=== PATIENT | female | born 1935 | race Caucasian/White ===

== ENCOUNTER 2017-12-01 04:23 | Observation (INO) | payer OTHER ==
--- NOTE | 2017-12-01 04:46 | PDOC ---
History of Present Illness - General Chief Complaint: Shortness of Breath Stated Complaint: SHORTNESS OF BREATH Time Seen by Provider: 12/01/17 04:45 - History of Present Illness Initial Comments: 12/01/17 05:03 The patient is an 82 year old female with a history of HTN, HLD, DM and unclear pulmonary and cardiac history who presents for evaluation of SOB. The patient is accompanied by family who assist in providing the history. They report that the patient woke out of sleep earlier this morning with SOB and some associated chest pain which has now resolved. The patient reports continued SOB prompting her presentation to the ED for evaluation. She notes that she does not use O2 at home and otherwise denies fevers, chills, cough, nausea, vomiting, abdominal pain, leg swelling, or changes with urination or bowel movements. Past History - Past Medical History Allergies/Adverse Reactions: Allergies Allergy/AdvReac Type Severity Reaction Status Date / Time No Known Allergies Allergy Verified 12/01/17 13:23 Home Medications: Ambulatory Orders Unobtainable [Unobtainable] 12/01/17 - Suicide/Smoking/Psychosocial Hx Smoking History: Never smoked Have you smoked in the past 12 months: No Information on smoking cessation initiated: No Hx Alcohol Use: No Drug/Substance Use Hx: No Review of Systems - Review of Systems Comments:: 12/01/17 05:05 Constitutional: No fevers, chills, fatigue, malaise HEENT: No Rhinorrhea, nasal congestion, visual changes Cardiovascular: Chest pain. No syncope, palpitations, lightheadedness Respiratory: SOB. No Cough, Hemoptysis, Gastrointestinal: No Abdominal pain, Nausea, Vomiting, Constipation, Diarrhea, Melena Genitourinary: No Dysuria, Frequency, Urgency, Hesitancy, Hematuria, Flank pain Musculoskeletal: No Myalgia, arthralgia Skin: No rashes, itching, bruising, pallor Neurologic: No Headache, Dizziness, Numbness, Weakness, or Tingling Psychiatric: No Hallucinations. No SI or HI *Physical Exam - Vital Signs Last Vital Signs Temp Pulse Resp BP Pulse Ox 98.7 F 86 20 96/57 100 12/01/17 04:44 12/01/17 04:44 12/01/17 04:44 12/01/17 04:44 12/01/17 04:44 - Physical Exam Comments: 12/01/17 05:05 General Appearance: Nourished. No Apparent Distress HEENT: EOMI, OSCAR. No Pharyngeal Erythema, Tonsillar Exudate, Tonsillar Erythema Neck: No Cervical Lymphadenopathy Respiratory/Chest: Lungs Clear, Normal Breath Sounds. No Crackles, Rales, Rhonchi, Wheezing Cardiovascular: Regular Rhythm, Regular Rate. No Murmur, Gallops, Rubs Gastrointestinal/Abdominal: Normal Bowel Sounds, Soft. No Guarding, Rebound, Tenderness Musculoskeletal: No CVA Tenderness Extremity: No lower extremity edema noted on exam. Normal Capillary Refill Integumentary: Normal Color, Dry, Warm Neurologic: Fully Oriented, Alert, Normal Mood/Affect, Normal Response, Heart Score/ECG Review #1 ECG reviewed & interpreted by me at: 05:07 General ECG Interpretation: Sinus Rhythm, Normal Rate, Normal Intervals, No acute ischemic changes Compared to previous ECG there are: Previous ECG unavail ED Treatment Course - LABORATORY CBC & Chemistry Diagram: 12/01/17 05:21 12/01/17 06:30 Medical Decision Making - Medical Decision Making 12/01/17 05:08 The patient is an 82 year old female with a history of HTN, HLD, DM and unclear pulmonary and cardiac history who presents for evaluation of SOB. Differential includes but is not limited to: ACS, CHF, COPD, pneumonia, infectious, metabolic derangement. Given the patient's history and co-morbidities, we will obtain a cbc, cmp, troponin, bnp, ekg, chest plain film to evaluate for possible etiologies including acs. She will likely require a telemetry obs admission for further monitoring. However we will continue to monitor and reassess in the meantime. 12/01/17 06:56 Patient signed out to oncoming team pending lab results and likely tele obs admission. *DC/Admit/Observation/Transfer Diagnosis at time of Disposition: Atypical chest pain - Referrals - Patient Instructions - Post Discharge Activity
[2017-12-01 05:39] LABS: BASO % 1.2 % (0-2.0); EOS % 0.4 % (0-4.5); HEMATOCRIT 31.6 % (32.4-45.2); HEMOGLOBIN 10.7 GM/dL (10.7-15.3); MCH 33.8 pg (25.7-33.7); MCHC 33.9 g/dl (32.0-36.0); MEAN CELL VOLUME 99.6 fl (80-96); MONO % 20.5 % (3.8-10.2); NEUT % 54.9 % (42.8-82.8); PLATELET COUNT 150 K/MM3 (134-434); RBC 3.17 M/mm3 (3.60-5.2); RDW 16.4 % (11.6-15.6); WHITE BLOOD COUNT 5.4 K/mm3 (4.0-10.0)
--- NOTE | 2017-12-01 07:00 | PDOC ---
Attending Attestation - Resident Resident Name: Kenny Naik - ED Attending Attestation I have performed the following: I have examined & evaluated the patient, The case was reviewed & discussed with the resident, I agree w/resident's findings & plan, Exceptions are as noted - HPI HPI: 12/01/17 07:00 short of breath prior to presentation. Now feeling better - Physicial Exam PE: 12/01/17 07:00 Physical Exam General Appearance: Yes: Appropriately Dressed. No: Apparent Distress, Intoxicated HEENT: positive: EOMI, OSCAR, Normal ENT Inspection, Normal Voice, TMs Normal, Pharynx Normal. negative: Pale Conjunctivae, Photophobia, Scleral Icterus (R), Scleral Icterus (L) Neck: positive: Trachea midline, Normal Thyroid, Supple. negative: Tender, Rigid, Carotid bruit, Stridor, Lymphadenopathy (R), Lymphadenopathy (L), Thyromegaly Respiratory/Chest: positive: Lungs Clear, Normal Breath Sounds. negative: Chest Tender, Respiratory Distress, Accessory Muscle Use, Labored Respiration, RES, Crackles, Rales, Rhonchi, Stridor, Wheezing, Dullness Cardiovascular: positive: Regular Rhythm, Regular Rate, S1, S2. negative: Edema , JVD, Murmur, Bradycardia, Tachycardia Vascular Pulses: Dorsalis-Pedis (R): 2+, Doralis-Pedis (L): 2+ Gastrointestinal/Abdominal: positive: Normal Bowel Sounds, Flat, Soft. negative : Tender, Organomegaly, Pulsatile Mass, Increased Bowel Sounds, Decreased BS, Distended, Guarding, Rebound, Hernia, Hepatomegaly, Spleenomegaly Lymphatic: negative: Adenopathy, Tenderness Musculoskeletal: positive: Normal Inspection. negative: CVA Tenderness, Decreased Range of Motion Extremity: positive: Normal Capillary Refill, Normal Inspection, Normal Range of Motion, Pelvis Stable. negative: Tender, Pedal Edema, Swelling, Erythema Integumentary: positive: Normal Color, Dry, Warm. negative: Cyanotic, Erythema , Jaundice, Rash Neurologic: positive: roll over loader II-XII NML intact, Fully Oriented, Alert, Normal Mood/ Affect, Motor Strength 5/5. negative: EOM Palsy, Facial Droop, Sensory Deficit - Medical Decision Making 12/01/17 19:41 Pt admitted to telemetry
--- NOTE | 2017-12-01 07:13 | PDOC ---
*Physical Exam - Vital Signs Last Vital Signs Temp Pulse Resp BP Pulse Ox 98.7 F 86 20 96/57 100 12/01/17 04:44 12/01/17 04:44 12/01/17 04:44 12/01/17 04:44 12/01/17 04:44 - Physical Exam Comments: 12/01/17 07:09 GENERAL: Awake, alert, and fully oriented, in no acute distress HEAD: No signs of trauma, normocephalic, atraumatic EYES: PERRLA, EOMI, sclera anicteric, conjunctiva clear ENT: Hearing grossly normal, nares patent, oropharynx clear without exudates. Moist mucosa NECK: Normal ROM, supple, no lymphadenopathy, JVD, or masses LUNGS: No distress, speaks full sentences, clear to auscultation bilaterally HEART: Regular rate and rhythm, normal S1 and S2, no murmurs, rubs or gallops, peripheral pulses normal and equal bilaterally. EXTREMITIES : Normal inspection, Normal range of motion, no edema. No clubbing or cyanosis. SKIN: Warm, Dry, normal turgor, no rashes or lesions noted Heart Score/ECG Review - History History: Slightly suspicious - Electrocardiogram EKG: Normal - Age Age: >/= 65 - Risk Factors Risk Factors Heart Score: Yes Hx Hypertension, Yes Hx Diabetes, Yes Positive family hx of cardiac disease Based on the list above the patient has:: >/=3 risk factors or Hx atherosclerotic disease - Troponin Troponin: </= normal limit - Score Heart Score - Total: 4 ED Treatment Course - LABORATORY CBC & Chemistry Diagram: 12/01/17 05:21 12/01/17 06:30 - ADDITIONAL ORDERS Additional order review: Laboratory Results 12/01/17 05:21 Sodium Cancelled Potassium Cancelled Chloride Cancelled Carbon Dioxide Cancelled Anion Gap Cancelled BUN Cancelled Creatinine Cancelled Creat Clearance w eGFR Cancelled Random Glucose Cancelled Calcium Cancelled Total Bilirubin Cancelled AST Cancelled ALT Cancelled Alkaline Phosphatase Cancelled Creatine Kinase Cancelled Troponin I Cancelled B-Natriuretic Peptide Cancelled Total Protein Cancelled Albumin Cancelled 12/01/17 05:21 RBC 3.17 L MCV 99.6 H MCHC 33.9 RDW 16.4 H MPV 9.0 Neutrophils % 54.9 Lymphocytes % 23.0 Monocytes % 20.5 H Eosinophils % 0.4 Basophils % 1.2 Medical Decision Making - Medical Decision Making 12/01/17 07:07 82 yo F with h/o HTN, HLD, DM and unclear pulmonary and cardiac history who presents SOB and retrosternal chest pain (now resolved) beginning this AM after waking up from sleep. Denies fevers, chills, cough, nausea, vomiting, abdominal pain, leg swelling, or changes with urination or bowel movements. HDS, and absent physical exam findings. Were considering TX/ACS, CHF, COPD, PNA, metabolic derangement. CBC was unremarkable. CMP pending. Will admit to Tele/ Obs based on unclear cardiac history, elevated heart score~4, and continued symptoms. EKG with NSR and no acute GIRISH, STD . Normal interval duration. ED Course 12/01/17 07:16 CXR: Cardiomegaly with no acute pathology, with no evidence of PNA, CHF, pleural effusions. EKG: NSR with absent, GIRISH, STD, or TWI. Normal interval and axis. 12/01/17 08:55 BNP: 321 Trop: Neg BUN/CR~39/1.4 NS 1 L 12/01/17 08:58 Omar is admitting Medical physician. Attempted to contact 12/01/17 10:[address] Nelson 12/01/17 10:[address] Nelson. Repeat trop pending Admitted to hospitalist service. *DC/Admit/Observation/Transfer Diagnosis at time of Disposition: Atypical chest pain - Referrals Referrals: Can Hernandez MD [Primary Care Provider] - - Patient Instructions - Post Discharge Activity
[2017-12-01 07:25] LABS: ALBUMIN 3.2 g/dl (3.4-5.0); ANION GAP 13 (8-16); BILIRUBIN,TOTAL 0.6 mg/dL (0.2-1.0); BLOOD UREA NITROGEN 39 mg/dL (7-18); CALCIUM 8.6 mg/dL (8.5-10.1); CHLORIDE 99 mmol/L (98-107); CO2 29 mmol/L (21-32); CREATININE 1.4 mg/dL (0.55-1.02); GLUCOSE,RANDOM 190 mg/dL (74-106); POTASSIUM 3.4 mmol/L (3.5-5.1); SGOT/AST 17 U/L (15-37); SGPT/ALT 14 U/L (12-78); SODIUM 141 mmol/L (136-145); TOT PROT 7.4 g/dl (6.4-8.2)
[2017-12-01 07:28] LABS: ALK PHOS 46 U/L (45-117); N-TERMINAL BNP 321.97 pg/ml (5-450)
[2017-12-01] MEDS ORDERED: SODIUM CHLORIDE 1,000 ML IV STA (08:56)
--- NOTE | 2017-12-01 12:08 | HP ---
CHIEF COMPLAINT: SOB and Chest pain PCP: Dr. Nelson HISTORY OF PRESENT ILLNESS: 82 y/o F w/PMH of HTN, HLD, DM, and "lung and heart problems" presents with SOB that occurred at night last night. SOB was at rest and not worsened with walking and associated with mid sternal chest pain with no radiation. Pt's CP resolved soon after but SOB persisted. She states she was in her usual state of health yesterday and had this SOB all of a sudden. She states she has a chronic cough for which she uses an inhaler to relieve the cough but denies having asthma and was unsure about COPD (pt has no smoking hx). She denies sick contacts, recent travel, abd pain, fever, chills, change in urine or bowel movements, blood in urine or stool, phlegm with cough, swelling in legs, pain in calfs. Currently pt is asymptomatic and feels back at baseline and no longer has SOB or chest pain. ER course was notable for: (1) NS (2) (3) Recent Travel: denies PAST MEDICAL HISTORY: HTN, HLD, DM, "lung and heart problems" (pt does not know exactly what). PAST SURGICAL HISTORY: denies any surgeries in the past Social History: Smoking: never Alcohol: never Drugs: never Family History: n-c Allergies No Known Allergies Allergy (Verified 12/01/17 05:01) HOME MEDICATIONS: Home Medications Medication Instructions Recorded Unobtainable [Unobtainable] 12/01/17 REVIEW OF SYSTEMS CONSTITUTIONAL: Absent: fever, chills CARDIOVASCULAR: +chest pain Absent: peripheral edema RESPIRATORY: +sob Absent: cough, dyspnea with exertion GASTROINTESTINAL: Absent: abdominal pain, nausea, vomiting, diarrhea GENITOURINARY: Absent: dysuria, hematuria NEUROLOGIC: Absent: headache PHYSICAL EXAMINATION Vital Signs - 24 hr 12/01/17 12/01/17 04:44 08:15 Temperature 98.7 F 98.5 F Pulse Rate 86 70 Pulse Rate [ 70 Apical] Respiratory 20 20 Rate Blood Pressure 96/57 Blood Pressure 100/54 [Left Arm] O2 Sat by Pulse 100 98 Oximetry (%) GENERAL: Awake, alert, and fully oriented, in no acute distress. EYES: sclera anicteric, conjunctiva clear. EARS, NOSE, THROAT: Ears normal, nares patent NECK: Normal range of motion, supple LUNGS: Breath sounds equal, clear to auscultation bilaterally. No wheezes, and no crackles. No accessory muscle use. HEART: Distant heart sounds. Regular rate and rhythm, normal S1 and S2. Difficult to assess for murmurs due to distant heart sounds. ABDOMEN: Soft, obese, nontender, not distended, normoactive bowel sounds LOWER EXTREMITIES: 2+ pulses, warm, well-perfused. No calf tenderness. No peripheral edema. NEUROLOGICAL: Normal speech. Gait not observed. PSYCHIATRIC: Cooperative. Good eye contact. Appropriate mood and affect. SKIN: Warm, dry Laboratory Results - last 24 hr 12/01/17 12/01/17 12/01/17 05:21 05:21 06:30 WBC 5.4 RBC 3.17 L Hgb 10.7 Hct 31.6 L MCV 99.6 H MCH 33.8 H MCHC 33.9 RDW 16.4 H Plt Count 150 MPV 9.0 Neutrophils % 54.9 Lymphocytes % 23.0 Monocytes % 20.5 H Eosinophils % 0.4 Basophils % 1.2 Sodium Cancelled 141 Potassium Cancelled 3.4 L Chloride Cancelled 99 Carbon Dioxide Cancelled 29 Anion Gap Cancelled 13 BUN Cancelled 39 H Creatinine Cancelled 1.4 H Creat Clearance w eGFR Cancelled 36.18 Random Glucose Cancelled 190 H Calcium Cancelled 8.6 Total Bilirubin Cancelled 0.6 AST Cancelled 17 ALT Cancelled 14 Alkaline Phosphatase Cancelled 46 Creatine Kinase Cancelled 90 Troponin I Cancelled < 0.02 B-Natriuretic Peptide Cancelled 321.97 Total Protein Cancelled 7.4 Albumin Cancelled 3.2 L Imaging: CXR: No acute pathology R shoulder XR: no acute pathology EKG: NSR, no acute ischemic changes ASSESSMENT/PLAN: 82 y/o F w/PMH of HTN, HLD, DM, and "lung and heart problems" presents with SOB and chest pain that occurred at night last night. Pt being observed for chest pain. -SOB likely secondary to asthma (undiagnosed but on inhaler) exacerbation vs cardiac etiology -Pt with no SOB now -will give duonebs PRN for sob -pt with no chest pain now -will continue to trend trops, first trop negative so far -HTN -currently normotensive. Pt does not remember her home meds. -continue to monitor -DM -ISS, BGMs ACHS -DVT ppx -Heparin 5000 units sq TID -FEN -No fluids -hypokalemia, will replete with 40 meq K PO -Diabetic diet -Dispo: tele/obs Visit type - Emergency Visit Emergency Visit: Yes ED Registration Date: 12/01/17 Care time: The patient presented to the Emergency Department on the above date and was hospitalized for further evaluation of their emergent condition. - New Patient This patient is new to me today: Yes Date on this admission: 12/01/17 - Critical Care Critical Care patient: No Hospitalist Screening - Colonoscopy Questionnaire Colonoscopy Questionnaire: Colonoscopy Questionnaire - Patient: 50 - 75 years old and never had a screening colonoscopy: Unknown History of colon or rectal polyps, or CA: Unknown History of IBD, Crohn's disease or UC: Unknown History of abdominal radiation therapy as a child: Unknown - Relative: 1 with colon or rectal CA, or polyps at age 60 or younger: Unknown Colon or rectal CA diagnosed at age 45 or younger: Unknown Multiple relatives with colon or rectal CA: Unknown - Outcome: Screening Result: Negative Screen
[2017-12-01] MEDS ORDERED: ALBUTEROL SO4 2.5/IPRATROPIUM 0.5 INH SOL 3 ML VIAL.NEB. NEB PRN (12:30)
[2017-12-01] MEDS ORDERED: POTASSIUM CHLORIDE TABS 20 MEQ TABLET.ER (FP) PO ONE ×2 (12:45→13:05)
[2017-12-01] MEDS ORDERED: HEPARIN NA (PORCINE) 5,000 UNITS/ML 1ML VIAL ONE (13:05)
[2017-12-01] MEDS: HEPARIN NA (PORCINE) 5,000 UNITS/ML 1ML VIAL SQ SCH ×2 (13:57→21:40)
--- NOTE | 2017-12-01 16:35 | EKG ---
Test Reason : Blood Pressure : / mmHG Vent. Rate : 068 BPM Atrial Rate : 068 BPM P-R Int : 140 ms QRS Dur : 090 ms QT Int : 444 ms P-R-T Axes : 003 -11 096 degrees QTc Int : 472 ms POOR DATA QUALITY, INTERPRETATION MAY BE ADVERSELY AFFECTED NORMAL SINUS RHYTHM NONSPECIFIC ST AND T WAVE ABNORMALITY ABNORMAL ECG NO PREVIOUS ECGS AVAILABLE Confirmed by DORIAN YOUSSEF, MARY ([id number]) on 12/01/2017 4:34:36 PM Referred By: Confirmed By:MARY ALARCON MD
[2017-12-01 18:16] VITALS: BMI 29.9
[2017-12-01] MEDS ORDERED: PNEUMOC 13-VAL CONJ-DIP CRM/PF 0.5 ML DISP.SYRIN IM ONE (19:15)
--- NOTE | 2017-12-01 19:35 | PN ---
Teaching Attending Note Name of Resident: Kristian Shelton ATTENDING PHYSICIAN STATEMENT I saw and evaluated the patient. I reviewed the resident's note and discussed the case with the resident. I agree with the resident's findings and plan as documented. SUBJECTIVE: This is an 82 year old woman with a history of HTN, hyperlipidemia, type 2 DM who comes to the ED complaining of mid sternal chest pain and SOB that awoke her from sleep early this morning. Symptoms did not worsen with exertion. She denies palpitations, dizziness, diaphoresis. She has not had recent CP/SOB with exertion. Symptoms resolved prior to her arrival in the ED. OBJECTIVE: Vital Signs Period Temp Pulse Resp BP Sys/Hardin Pulse Ox Last 24 Hr 98 F-98.7 F 66-86 18-20 96-155/54-82 98-100 HEART: S1S2, RRR LUNGS: Clear ABDOMEN: Soft, non-tender, non-distended, normal BS EXTREMITIES: No edema Home Medications Medication Instructions Recorded Unobtainable [Unobtainable] 12/01/17 ASSESSMENT AND PLAN: This is an 82 year old woman with a history of HTN, hyperlipidemia, type 2 DM who presented to the ED with an episode of CP and SOB that awoke her from sleep. 1. Atypical CP with SOB - Resolved without intervention - Observe on telemetry - Serial troponins - Outpatient stress test if enzymes negative 2. Hypokalemia - Replete potassium 3. HTN 4. Hyperlipidemia 5. Type 2 DM - Fingersticks with Novolog sliding scale 6. 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
[2017-12-02] MEDS: HEPARIN NA (PORCINE) 5,000 UNITS/ML 1ML VIAL SQ SCH ×2 (06:32→14:07)
--- NOTE | 2017-12-02 07:15 | PN ---
Physical Exam: SUBJECTIVE: Patient seen and examined OBJECTIVE: Vital Signs Intake & Output 11/29/17 11/30/17 12/01/17 12/02/17 23:59 23:59 23:59 23:59 Intake Total 360 Balance 360 Weight 69.4 kg Period Temp Pulse Resp BP Sys/Hardin Pulse Ox Last 24 Hr 97.8 F-99.1 F 60-80 18-20 100-175/54-82 98-98 GENERAL: The patient is awake, alert, and fully oriented, in no acute distress. HEAD: Normal with no signs of trauma. EYES: PERRL, extraocular movements intact, sclera anicteric, conjunctiva clear. No ptosis. ENT: Ears normal, nares patent, oropharynx clear without exudates, moist mucous membranes. NECK: Trachea midline, full range of motion, supple. LUNGS: Breath sounds equal, clear to auscultation bilaterally, no wheezes, no crackles, no accessory muscle use. HEART: Regular rate and rhythm, S1, S2 without murmur, rub or gallop. ABDOMEN: Soft, nontender, nondistended, normoactive bowel sounds, no guarding, no rebound, no hepatosplenomegaly, no masses. EXTREMITIES: 2+ pulses, warm, well-perfused, no edema. NEUROLOGICAL: Cranial nerves II through XII grossly intact. Normal speech, gait not observed. PSYCH: Normal mood, normal affect. SKIN: Warm, dry, normal turgor, no rashes or lesions noted Laboratory Results - last 24 hr CBC, BMP CBC, BMP 12/02/17 07:05 12/02/17 07:05 12/01/17 05:21 12/01/17 06:30 12/01/17 12/01/17 12/01/17 06:30 13:19 14:24 Sodium 141 Potassium 3.4 L Chloride 99 Carbon Dioxide 29 Anion Gap 13 BUN 39 H Creatinine 1.4 H Creat Clearance w eGFR 36.18 Random Glucose 190 H Calcium 8.6 Total Bilirubin 0.6 AST 17 ALT 14 Alkaline Phosphatase 46 Creatine Kinase 90 107 Troponin I < 0.02 0.02 0.02 B-Natriuretic Peptide 321.97 Total Protein 7.4 Albumin 3.2 L Active Medications Generic Name Dose Route Start Last Admin Trade Name Freq PRN Reason Stop Dose Admin Albuterol/Ipratropium 1 amp 12/01/17 12:30 Duoneb - NEB Q6H PRN SHORTNESS OF BREATH Heparin Sodium (Porcine) 5,000 unit 12/01/17 14:00 12/02/17 06:32 Heparin - SQ Not Given TID [facility] ASSESSMENT/PLAN:
[2017-12-02 07:31] LABS: HEMATOCRIT 30.4 % (32.4-45.2); HEMOGLOBIN 10.1 GM/dL (10.7-15.3); MCH 33.5 pg (25.7-33.7); MCHC 33.2 g/dl (32.0-36.0); MEAN PLT VOLUME 8.9 fl (7.5-11.1); PLATELET COUNT 144 K/MM3 (134-434); RBC 3.02 M/mm3 (3.60-5.2); RDW 16.7 % (11.6-15.6); WHITE BLOOD COUNT 4.3 K/mm3 (4.0-10.0)
[2017-12-02 08:21] LABS: ALBUMIN 3.3 g/dl (3.4-5.0); ANION GAP 6 (8-16); BLOOD UREA NITROGEN 30 mg/dL (7-18); CALCIUM 8.1 mg/dL (8.5-10.1); CHLORIDE 106 mmol/L (98-107); CO2 32 mmol/L (21-32); CREATININE 1.3 mg/dL (0.55-1.02); GLUCOSE,RANDOM 178 mg/dL (74-106); MAGNESIUM 2.1 mg/dL (1.8-2.4); PHOSPHOROUS 2.8 mg/dL (2.5-4.9); POTASSIUM 4.1 mmol/L (3.5-5.1); SODIUM 144 mmol/L (136-145)
[2017-12-02] MEDS ORDERED: ACETAMINOPHEN 325 MG TABLET (FP) PO PRN (11:19)
[2017-12-02 12:11] LABS: ANISOCYTOSIS 1+; MACROCYTOSIS 1+
[2017-12-02 12:12] LABS: PLATELET ESTIMATE SLT DECREASE
[2017-12-02] MEDS ORDERED: INSULIN (NOVOLOG) ASPART 100 UNITS/ML 10ML VIAL ONE (12:18)
[2017-12-02] MEDS: INSULIN SLIDING SCALE (NOVOLOG) 1 VIAL SQ SCH ×2 (12:18→17:19)
[2017-12-02 14:53] VITALS: BP 123/58; PULSE 58; TEMP 98.2
--- NOTE | 2017-12-02 15:58 | PN ---
Teaching Attending Note Name of Resident: Joao Rosas ATTENDING PHYSICIAN STATEMENT I saw and evaluated the patient. I reviewed the resident's note and discussed the case with the resident. I agree with the resident's findings and plan as documented with exceptions mentioned below. SUBJECTIVE: Patient seen and examined, breathing better, no complaints, denies any chest pain. OBJECTIVE: Vital Signs Period Temp Pulse Resp BP Sys/Hardin Pulse Ox Last 24 Hr 97.8 F-99.8 F 58-75 18-20 105-175/58-82 98-98 Intake & Output 11/29/17 11/30/17 12/01/17 12/02/17 23:59 23:59 23:59 23:59 Intake Total 360 Balance 360 Weight 153 lb General: sitting in bed in no acute distress CVS:S1S2 regular Chest: CTAB, no rales or wheezing abdomen: soft, NT extremities: no edema Home Medication List Medication Instructions Recorded Confirmed Type Albuterol Sulfate Inhaler - 2 puff .ROUTE Q4H PRN 12/02/17 12/02/17 History [Ventolin HFA Inhaler -] Chlorthalidone 25 mg PO DAILY 12/02/17 12/02/17 History Ergocalciferol (Vitamin D2) 50,000 cap PO WEEKLY 12/02/17 12/02/17 History [Vitamin D2] Insulin Glargine,Hum.rec.anlog 80 unit SQ DAILY 12/02/17 12/02/17 History [Lantus] Nebivolol HCl [Bystolic] 10 mg PO DAILY 12/02/17 12/02/17 History Omeprazole 40 mg PO DAILY 12/02/17 12/02/17 History Primidone 50 mg PO BID 12/02/17 12/02/17 History Active Medications Generic Name Dose Route Start Last Admin Trade Name Freq PRN Reason Stop Dose Admin Acetaminophen 325 mg 12/02/17 11:19 12/02/17 12:21 Tylenol - PO 325 mg Q6H PRN Administration PAIN LEVEL 1 - 3 Albuterol/Ipratropium 1 amp 12/01/17 12:30 Duoneb - NEB Q6H PRN SHORTNESS OF BREATH Heparin Sodium (Porcine) 5,000 unit 12/01/17 14:00 12/02/17 14:07 Heparin - SQ 5,000 unit TID JALEN Administration Insulin Aspart 1 vial 12/02/17 11:00 12/02/17 12:18 Novolog Vial Sliding Scale - SQ 6 units [facility] Administration Protocol Home Medication List Medication Instructions Recorded Confirmed Type Albuterol Sulfate Inhaler - 2 puff .ROUTE Q4H PRN 12/02/17 12/02/17 History [Ventolin HFA Inhaler -] Chlorthalidone 25 mg PO DAILY 12/02/17 12/02/17 History Ergocalciferol (Vitamin D2) 50,000 cap PO WEEKLY 12/02/17 12/02/17 History [Vitamin D2] Insulin Glargine,Hum.rec.anlog 80 unit SQ DAILY 12/02/17 12/02/17 History [Lantus] Nebivolol HCl [Bystolic] 10 mg PO DAILY 12/02/17 12/02/17 History Omeprazole 40 mg PO DAILY 12/02/17 12/02/17 History Primidone 50 mg PO BID 12/02/17 12/02/17 History Active Medications Generic Name Dose Route Start Last Admin Trade Name Roccoq PRN Reason Stop Dose Admin Acetaminophen 325 mg 12/02/17 11:19 12/02/17 12:21 Tylenol - PO 325 mg Q6H PRN Administration PAIN LEVEL 1 - 3 Albuterol/Ipratropium 1 amp 12/01/17 12:30 Duoneb - NEB Q6H PRN SHORTNESS OF BREATH Heparin Sodium (Porcine) 5,000 unit 12/01/17 14:00 12/02/17 14:07 Heparin - SQ 5,000 unit TID JALEN Administration Insulin Aspart 1 vial 12/02/17 11:00 12/02/17 12:18 Novolog Vial Sliding Scale - SQ 6 units [facility] Administration Protocol Laboratory Results - last 24 hr 12/02/17 12/02/17 12/02/17 06:43 07:05 07:05 WBC 4.3 RBC 3.02 L Hgb 10.1 L Hct 30.4 L MCV 101.0 H MCH 33.5 MCHC 33.2 RDW 16.7 H Plt Count 144 MPV 8.9 Neutrophils % No Result Required. Neutrophils % (Manual) 54.0 Lymphocytes % No Result Required. Lymphocytes % (Manual) 25.0 Monocytes % (Manual) 20 H* Basophils % (Manual) 1.0 Differential Comment Man diff performed Platelet Estimate Slt decrease Anisocytosis 1+ Macrocytosis 1+ Sodium 144 Potassium 4.1 Chloride 106 Carbon Dioxide 32 Anion Gap 6 L BUN 30 H Creatinine 1.3 H POC Glucometer 191 Random Glucose 178 H Calcium 8.1 L Phosphorus 2.8 Magnesium 2.1 Albumin 3.3 L 12/02/17 12:11 WBC RBC Hgb Hct MCV MCH MCHC RDW Plt Count MPV Neutrophils % Neutrophils % (Manual) Lymphocytes % Lymphocytes % (Manual) Monocytes % (Manual) Basophils % (Manual) Differential Comment Platelet Estimate Anisocytosis Macrocytosis Sodium Potassium Chloride Carbon Dioxide Anion Gap BUN Creatinine POC Glucometer 258 Random Glucose Calcium Phosphorus Magnesium Albumin ASSESSMENT AND PLAN: 82 yof with atypical chest pain -Atypical chest pain, resolved -HTN -HLD -IDDM PLan: Telemetry uneventful, ACS ruled out. patient asymptomatic. outpatient stress test. Resume home meds dc home with services today with outpatient follow up.
--- NOTE | 2017-12-02 18:53 | DS ---
Physical Exam: SUBJECTIVE: Patient seen and examined by me this AM - No major overnight events. States breathing is much improved, no chest pain/ tightness. Denies [place], f/c/n/v/d, cough, ab pain, back pain, dizziness, lightheadness. Cleared for discharge home today with outpt cardiac stress test. OBJECTIVE: Vital Signs Intake & Output 11/29/17 11/30/17 12/01/17 12/02/17 23:59 23:59 23:59 23:59 Intake Total 360 0 Balance 360 0 Weight 69.4 kg Period Temp Pulse Resp BP Sys/Hardin Pulse Ox Last 24 Hr 97.8 F-99.8 F 58-68 18-20 123-175/58-82 98-98 PHYSICAL EXAM GENERAL: Awake, alert, and fully oriented, in no acute distress. EYES: sclera anicteric, conjunctiva clear. EARS, NOSE, THROAT: Ears normal, nares patent NECK: Normal range of motion, supple LUNGS: Breath sounds equal, clear to auscultation bilaterally. No wheezes, and no crackles. No accessory muscle use. HEART: Distant heart sounds. Regular rate and rhythm, normal S1 and S2. Difficult to assess for murmurs due to distant heart sounds. ABDOMEN: Soft, obese, nontender, not distended, normoactive bowel sounds LOWER EXTREMITIES: 2+ pulses, warm, well-perfused. No calf tenderness. No peripheral edema. NEUROLOGICAL: Normal speech. Gait not observed. PSYCHIATRIC: Cooperative. Good eye contact. Appropriate mood and affect. SKIN: Warm, dry LABS Laboratory Results - last 24 hr CBC, BMP 12/02/17 07:05 12/02/17 07:05 12/02/17 12/02/17 12/02/17 06:43 07:05 07:05 WBC 4.3 RBC 3.02 L Hgb 10.1 L Hct 30.4 L MCV 101.0 H MCH 33.5 MCHC 33.2 RDW 16.7 H Plt Count 144 MPV 8.9 Neutrophils % No Result Required. Neutrophils % (Manual) 54.0 Lymphocytes % No Result Required. Lymphocytes % (Manual) 25.0 Monocytes % (Manual) 20 H* Basophils % (Manual) 1.0 Differential Comment Man diff performed Platelet Estimate Slt decrease Anisocytosis 1+ Macrocytosis 1+ Sodium 144 Potassium 4.1 Chloride 106 Carbon Dioxide 32 Anion Gap 6 L BUN 30 H Creatinine 1.3 H POC Glucometer 191 Random Glucose 178 H Calcium 8.1 L Phosphorus 2.8 Magnesium 2.1 Albumin 3.3 L 12/02/17 12/02/17 12:11 17:16 WBC RBC Hgb Hct MCV MCH MCHC RDW Plt Count MPV Neutrophils % Neutrophils % (Manual) Lymphocytes % Lymphocytes % (Manual) Monocytes % (Manual) Basophils % (Manual) Differential Comment Platelet Estimate Anisocytosis Macrocytosis Sodium Potassium Chloride Carbon Dioxide Anion Gap BUN Creatinine POC Glucometer 258 155 Random Glucose Calcium Phosphorus Magnesium Albumin No micro Imaging: CXR: No acute pathology R shoulder XR: no acute pathology EKG: NSR, no acute ischemic changes No consults HOSPITAL COURSE: Prehospital course: 82 y/o F w/PMH of HTN, HLD, DM, and "lung and heart problems" presents with SOB that occurred at night last night. SOB was at rest and not worsened with walking and associated with mid sternal chest pain with no radiation. Pt's CP resolved soon after but SOB persisted. She states she was in her usual state of health yesterday and had this SOB all of a sudden. She states she has a chronic cough for which she uses an inhaler to relieve the cough but denies having asthma and was unsure about COPD (pt has no smoking hx). She denies sick contacts, recent travel, abd pain, fever, chills, change in urine or bowel movements, blood in urine or stool, phlegm with cough, swelling in legs, pain in calfs. Currently pt is asymptomatic and feels back at baseline and no longer has SOB or chest pain. Hospital course: In ED, pt with negative trops x2, EKG w/ NSR negative for ischemic changes. CXR unremarkable. CBC w/ mild anemia of 10.7. BNP 321. LFTs normal, mild hypokalemia of 3.4 and slightly increased Cr of 3.4. Patient with hx of fall on R side and chronic shoulder pain for last 6 month. XR of shoulder notable for narrowing of superior joint space and chronic degenerative changes. Patient given IVFs, PO K-dur and Prevnar vaccine and O2 support. CP improved on presentation. SOB improved overnight with O2 support, satting 98-100% on NC. Vitals overnight notable for one episode of HTN to 170s systolic. Normalized in AM to 120-140s. Cardiac work-up negative, no active pulmonary issues except for initial sensation of SOB. Pt was medically cleared for discharge, with outpt stress test recommended for further cardiac work-up. Efrain at bedside on discharge, counseling provided and all questions answered. Date of Admission:12/01/17 Date of Discharge: 12/02/17 Patient is stable and cleared for discharge with follow-up with PCP in one week. Recommend outpt cardiac stress for further evaluation of cardiac dz. Minutes to complete discharge: 35 Discharge Summary Reason For Visit: ATYPICAL CHEST PAIN Current Active Problems Atypical chest pain (Acute) - Instructions Diet, Activity, Other Instructions: During your stay at [facility], you were treated for a chest pain and shortness of breath. Your medical work-up revealed no abnormalities. Medications: No new medications were added to your home regimen. Please continue to take all other home medications as previously directed. Follow-ups: Please follow-up with your primary care physician, Dr. Hernandez, in one week for further management of your medications. Please call their office to schedule an appointment. We recommend you receive an outpatient cardiac stress test for further evaluation of your heart function. Please obtain a referral for cardiac stress testing from your primary care physician. We recommend our [facility] cardiology group. Their contact information has been provided. Please schedule an appointment with their office. Diet/exercise: Please adhere to a low-fat diabetic diet. Please continue to use your rolling walker when walking around the house or in public. Please return to the hospital if you experience any of the following symptoms: - Prolonged shortness of breath, trouble breathing - Persistent pain in your chest, jaw, left arm or shoulder - Chest tightness - Worsening nausea or vomiting that occurs suddenly - Any new or concerning symptoms Referrals: Can Hernandez MD [Primary Care Provider] - 1 Week - Home Medications Comprehensive Discharge Medication List: Ambulatory Orders Albuterol Sulfate Inhaler - [Ventolin HFA Inhaler -] 2 puff .ROUTE Q4H PRN 12/02 Chlorthalidone 25 mg PO DAILY 12/02/17 Ergocalciferol (Vitamin D2) [Vitamin D2] 50,000 cap PO WEEKLY 12/02/17 Insulin Glargine,Hum.rec.anlog [Lantus] 80 unit SQ DAILY 12/02/17 Nebivolol HCl [Bystolic] 10 mg PO DAILY 12/02/17 Omeprazole 40 mg PO DAILY 12/02/17 Primidone 50 mg PO BID 12/02/17 This patient is new to me today: Yes Date on this admission: 12/02/17 Emergency Visit: Yes ED Registration Date: 12/01/17 Care time: The patient presented to the Emergency Department on the above date and was hospitalized for further evaluation of their emergent condition. Critical Care patient: No - Discharge Referral Referred to [facility] No
== END 2017-12-02 20:09 | disposition home or self-care (01) ==
LOC: JER 04:23 → JERBED 11:27 → J4W 17:40
PROVIDERS: ADMIT Internal Medicine; ATTEND Hospitalist
PROC: 3E0337Z Introduction of Electrolytic and Water Balance Substance into Peripheral Vein, Percutaneous Approach (ICD-10-PCS; principal; 2017-12-01)
PROC: 3E013GC Introduction of Other Therapeutic Substance into Subcutaneous Tissue, Percutaneous Approach (ICD-10-PCS; 2017-12-01)
PROC: 3E033VG Introduction of Insulin into Peripheral Vein, Percutaneous Approach (ICD-10-PCS; 2017-12-01)
DX: R07.89 Other chest pain (principal); R06.02 Shortness of breath; I10 Essential (primary) hypertension; E78.5 Hyperlipidemia, unspecified; E11.9 Type 2 diabetes mellitus without complications; E87.6 Hypokalemia
CPT/HCPCS: 36415; 71045-TC-FY; 73030-TC-RT-FY; 80048; 80053; 82040; 82550; 82962; 83735; 83880; 84100; 84484; 85025; 90670; 93005; 93010; 96360; 96372; 99285-25; G0009; G0378; J1644; J7030